=== PATIENT | male | born 1995 | race Caucasian/White ===

== ENCOUNTER 2017-07-26 08:55 | Day surgery (SDC) | payer OTHER ==
[~2017-07-26] VITALS: Ht 170.2 cm; Wt 68.1 kg
[2017-07-26 09:33] VITALS: BP 137/69; PULSE 74; TEMP 98
[2017-07-26] MEDS ORDERED: PROAIR HFA0.09 MG/AC IH (09:37)
[2017-07-26 13:05] VITALS: BP 123/71; PULSE 59; TEMP 97.5
[2017-07-26 13:20] VITALS: BP 124/61; PULSE 20
[2017-07-26 13:35] VITALS: BP 116/67; PULSE 59
== END 2017-07-26 15:00 | disposition home or self-care (01) ==
LOC: SDCO 08:55
DX: N30.81 Other cystitis with hematuria (principal); R30.0 Dysuria; J45.909 Unspecified asthma, uncomplicated
CPT/HCPCS: J0690; J1100; J2405; J2704; J3010; J7120